=== PATIENT | female | born 1995 | race African-American/Black ===

== ENCOUNTER 2017-02-19 16:41 | Emergency (ER) | payer OTHER ==
[~2017-02-19] VITALS: Ht 165.1 cm; Wt 67.5 kg
[~2017-02-19 16:41] MED LIST: IBUPROFEN800 MG PO; PRENATAL TABLE1 EAC3 PO; TUMS500 MG PO
[2017-02-19 17:09] LABS: HEMATOCRIT 35.9 % (36.0-46.0); MCH 28.8 PG (29.0-34.0); MCHC 32.9 G/DL (30.0-36.0); MCV 87.6 FL (83-99); MEAN PLAT.VOLUME 9.9 uM^3 (9.5-12.4); PLATELET COUNT 261 K/uL (156-360); RBC DIS.WIDTH-CV 12.4 % (11.8-14.6); RBC DIS.WIDTH-SD 39.9 % (39-53); WHITE BLOOD COUNT 6.8 K/uL (4.1-10.2)
[2017-02-19 17:17] LABS: CHLORIDE 110 mEq/L (99-109); POTASSIUM 3.8 mEq/L (3.7-5.4); SODIUM 140 mEq/L (136-147)
[2017-02-19 17:19] LABS: GLUCOSE 85 mg/dL (70-99)
[2017-02-19 17:20] LABS: ANION GAP 7 MEQ/L (2-14)
[2017-02-19 17:21] LABS: TOTAL BILIRUBIN 0.6 mg/dL (0.0-1.0)
[2017-02-19 17:22] LABS: ALKALINE PHOSPHATASE 81 IU/L (3-129)
[2017-02-19 17:23] LABS: GFR ESTIMATE (CALCULATED) > 59 mL/min/
[2017-02-19 17:24] LABS: UREA NITROGEN (BUN) 8 mg/dL (9-23)
[2017-02-19 17:32] LABS: QUANTITATIVE HCG < 4.0 MIU/ML
[2017-02-19 17:32] LABS: ADD MIUA? YES; BILIRUBIN NEGATIVE; BLOOD LARGE; COLOR YELLOW ((YELLOW)); GLUCOSE (STRIP) NEGATIVE; KETONES NEGATIVE; LEUKOCYTES NEGATIVE; NITRITE NEGATIVE; PROTEIN (STRIP) NEGATIVE; SPECIFIC GRAVITY 1.021 (1.000-1.030); UROBILINOGEN 0.2 MG/DL (0.2-1.0)
[2017-02-19 17:35] LABS: BACTERIA NONE SEEN /HPF; EPITHELIAL CELLS RARE /HPF; MUCUS TRACE /LPF; RED BLOOD CELLS 0-5 /HPF (0-5); UCUL ADDED? NO; WHITE BLOOD CELLS 0-5 /HPF (0-5)
[2017-02-19] MEDS ORDERED: OXYBUTYNIN CHLOR5 MG PO (18:25)
[2017-02-19] MEDS ORDERED: URIBEL CAPSULE1 EACH PO (18:25)
[2017-02-19 18:32] VITALS: BP 144/89
== END 2017-02-19 18:33 | disposition home or self-care (01) ==
LOC: EME 16:41
DX: R10.2 Pelvic and perineal pain (principal); R30.0 Dysuria; R31.9 Hematuria, unspecified; Z87.440 Personal history of urinary (tract) infections
CPT/HCPCS: 80053; 81003; 84702; 85027; 87086; 99281; 99284

== ENCOUNTER 2017-04-29 10:06 | Emergency (ER) | payer OTHER ==
[~2017-04-29] VITALS: Ht 165.1 cm; Wt 67.4 kg
[~2017-04-29 10:06] MED LIST changes: +OXYBUTYNIN CHLOR5 MG PO; +URIBEL CAPSULE1 EACH PO
[2017-04-29 10:45] LABS: HEMATOCRIT 37.3 % (36.0-46.0); MCH 28.7 PG (29.0-34.0); MCHC 32.4 G/DL (30.0-36.0); MCV 88.4 FL (83-99); MEAN PLAT.VOLUME 9.6 uM^3 (9.5-12.4); PLATELET COUNT 322 K/uL (156-360); RBC DIS.WIDTH-CV 12.5 % (11.8-14.6); RBC DIS.WIDTH-SD 40.6 % (39-53); RED BLOOD COUNT 4.22 M/uL (3.80-5.20); WHITE BLOOD COUNT 5.9 K/uL (4.1-10.2)
[2017-04-29 10:57] LABS: CHLORIDE 106 mEq/L (99-109); SODIUM 139 mEq/L (136-147)
[2017-04-29 10:58] LABS: GLUCOSE 91 mg/dL (70-99)
[2017-04-29 11:00] LABS: ANION GAP 8 MEQ/L (2-14)
[2017-04-29 11:02] LABS: GFR ESTIMATE (CALCULATED) > 59 mL/min/
[2017-04-29 11:03] LABS: UREA NITROGEN (BUN) 13 mg/dL (9-23)
[2017-04-29 11:06] LABS: TROP-I INTERPRETATION NEGATIVE; TROPONIN-I < 0.01 ng/mL (0.0-0.30)
[2017-04-29 11:11] LABS: QUANTITATIVE HCG < 4.0 MIU/ML
[2017-04-29 12:04] LABS: TOTAL BILIRUBIN 0.4 mg/dL (0.0-1.0)
[2017-04-29 12:05] LABS: ALKALINE PHOSPHATASE 90 IU/L (3-129)
[2017-04-29 12:08] LABS: DIRECT BILIRUBIN 0.2 mg/dL (0.0-0.3)
[2017-04-29 12:09] LABS: LIPASE 14 U/L (1.0-51.0)
[2017-04-29] MEDS ORDERED: PROTONIX40 MG PO (14:42)
[2017-04-29 15:09] VITALS: BP 129/50
== END 2017-04-29 15:11 | disposition home or self-care (01) ==
LOC: EME 10:06
DX: R10.13 Epigastric pain (principal)
CPT/HCPCS: 71020; 76705; 80048; 80076; 83690; 84484; 84702; 85027; 93005; 99281; 99283